=== PATIENT | female | born 1995 | race Hispanic/Latino ===

== ENCOUNTER 2023-02-28 19:58 | Emergency (ER) | payer OTHER ==
[2023-02-28 21:13] LABS: Absolute Lymphocytes (CBC) 2.4 K/uL (0.7-4.9); Hematocrit 39.5 % (36.0-45.0); Lymphocytes % 21.4 % (15.3-44.8); MCV 90.4 fL (80-100); MPV 8.7 fL (7.6-11.3); RBC Red Blood Cell Count 4.37 M/uL (3.86-4.86)
[2023-02-28 21:16] LABS: Specific Gravity 1.007 (1.005-1.030); Urine Bacteria <20 /HPF (<20); Urine Bilirubin NEGATIVE (Negative); Urine Blood 3+ (OVER) (Negative); Urine Clarity Turbid (Clear); Urine Color Colorless (Yellow); Urine Glucose NEGATIVE (Negative); Urine Protein TRACE (Negative); Urine RBC >50 /HPF (None Seen); Urine Urobilinogen Normal (Normal)
[2023-02-28 21:34] LABS: Albumin 4.1 g/dL (3.4-5.0); Bilirubin Total 0.2 mg/dL (0.2-1.0); Potassium 3.6 mEq/L (3.5-5.1); Protein, Total 8.1 g/dL (6.4-8.2)
--- NOTE | 2023-02-28 21:56 | RAD REPORT ---
EXAM DESCRIPTION: US - Transvaginal OB - 02/28/2023 9:45 pm CLINICAL HISTORY: Abd pain;Abd cramping, COMPARISON: <Comparisons> FINDINGS: The uterus is normal in size. The endometrium appears thickened. There is no evidence of I UP. Both ovaries are normal in size with normal blood flow. No pelvic ascites. IMPRESSION: Thickened endometrial stripe is seen without visualized IUP. In the setting of an elevat ed HCG level, this would indicate of unknown location. Follow-up serial HCG levels and pelv ic ultrasound in 7-10 days.
--- NOTE | 2023-02-28 22:40 | ER ---
Nurse's Notes [facility] Name: Aimee Gonzales Age: 27 yrs Sex: Female : 1995 Arrival Date: 02/28/2023 Time: 19:58 Bed 5 Private MD: Diagnosis: Threatened Presentation: 02/28 22:16 Chief complaint: Patient states: 6 weeks , started bleeding today this morning, rv denies abdominal pain. 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 PMX: denies any. Coronavirus screen: Vaccine status: Patient reports having had a previously documented Covid positive illness. 2020 At this time, the client does not indicate any symptoms associated with coronavirus-19. Ebola Screen: No symptoms or risks identified at this time. Initial Sepsis Screen: Does the patient meet any 2 criteria? No. Patient's initial sepsis screen is negative. Does the patient have a suspected source of infection? No. Patient's initial sepsis screen is negative. Risk Assessment: Do you want to hurt yourself or someone else? Patient reports no desire to harm self or others. Onset of symptoms was February 28, 2023. 22:16 Method Of Arrival: Ambulatory rv 22:16 Acuity: DARA 3 rv Triage Assessment: 22:19 General: Appears in no apparent distress. Behavior is calm, cooperative. Pain: Denies rv pain. : No deficits noted. No signs and/or symptoms were reported regarding the genitourinary system. Historical: - Allergies: 22:19 No Known Allergies; rv - PMHx: 22:19 None; rv - Immunization history:: Adult Immunizations up to date. - Social history:: Smoking status: Patient denies any tobacco usage or history of. Screenin:40 [facility] ED Fall Risk Assessment (Adult) History of falling in the last 3 months, vc1 including since admission No falls in past 3 months (0 pts) Confusion or Disorientation No (0 pts) Intoxicated or Sedated Impaired Gait No (0 pts) Mobility Assist Device Used No (0 pt) Altered Elimination No (0 pt) Score/Fall Risk Level 0 - 2 = Low Risk Oriented to surroundings, Maintained a safe environment, Educated pt \T\ family on fall prevention, incl call for assistance when getting out of bed. Abuse screen: Denies threats or abuse. Nutritional screening: No deficits noted. Tuberculosis screening: No symptoms or risk factors identified. Assessment: 22:41 Obstetrical Assessment: General assessment: awake and alert, skin warm and dry. vc1 Vital Signs: 22:16 BP 135 / 80; Pulse 111; Resp 16; Temp 98.1(TE); Pulse Ox 100% ; Weight 72.57 kg; Height rv 5 ft. 1 in. ; Pain 0/10; 22:30 BP 110 / 98; Pulse 105; Resp 16; Pulse Ox 100% on R/A; vc1 22:16 Body Mass Index 30.23 (72.57 kg, 154.94 cm) rv 22:16 Pain Scale: Adult rv Vitals: 22:40 Heart Tones only 6 weeks. vc1 ED Course: 20:00 Patient arrived in ED. mr 20:34 Dinesh Hitchcock MD is Attending Physician. bs3 21:06 Comprehensive Metabolic Panel Sent. bc6 21:06 CBC with Diff Sent. bc6 21:06 Type And Screen Sent. bc6 21:06 Urinalysis w/ reflexes Sent. bc6 21:06 HCG-Quantitative Sent. bc6 21:06 Initial lab(s) drawn, by ri, sent to lab. Inserted saline lock: 22 gauge in left bc6 antecubital area, using aseptic technique. 21:47 US Transvaginal Ob In Process Unspecified. EDMS 22:00 Arm band placed on right wrist. vc1 22:19 Triage completed. rv 22:39 Debbie Hammond, RN is Primary Nurse. vc1 22:41 Patient has correct armband on for positive identification. Bed in low position. Call vc1 light in reach. Pulse ox on. NIBP on. 23:00 No provider procedures requiring assistance completed. IV discontinued, intact, vc1 bleeding controlled, No redness/swelling at site. Pressure dressing applied. Administered Medications: No medications were administered Medication: 22:41 VIS not applicable for this client. vc1 Point of Care Testing: Urine : 22:40 done by lab now vc1 Outcome: 22:40 Discharge ordered by . bs3 23:00 Discharged to home ambulatory, with significant other. vc1 23:00 Condition: good 23:00 Discharge instructions given to patient, Instructed on discharge instructions, follow up and referral plans. gave names for different high risk and insurance consultant for Demonstrated understanding of instructions, follow-up care. 23:02 Patient left the ED. vc1 Signatures: Dispatcher [employer] ELSA Audra Davis mr Zen Blood RN RN rv Debbie Hammond RN RN vc1 Dinesh Hitchcock MD MD bs3 Lucy Harrington 6
--- NOTE | 2023-02-28 22:40 | EDPHYS ---
Physician Documentation [facility] Name: Aimee Gonzales Age: 27 yrs Sex: Female : 1995 Arrival Date: 02/28/2023 Time: 19:58 Bed 5 Private MD: ED Physician Dinesh Hitchcock HPI: 02/28 22:35 This 27 yrs old Female presents to ER via Ambulatory with complaints of bs3 Vaginal Bleeding, + Preg <12wks. 22:35 LMP January 09 presents with small cramping and light bleeidng, no fever or chills, bs3 no other complaints, happened previously. never seen a specialist. Pain is minimal. . Historical: - Allergies: 22:19 No Known Allergies; rv - PMHx: 22:19 None; rv - Immunization history:: Adult Immunizations up to date. - Social history:: Smoking status: Patient denies any tobacco usage or history of. ROS: 22:35 Constitutional: Negative for fever, chills bs3 22:35 All other systems are negative. Exam: 22:35 Constitutional: This is a well developed, well nourished patient who is awake, alert, bs3 and in no acute distress. Head/Face: Normocephalic, atraumatic. Eyes: Pupils equal round and reactive to light, extra-ocular motions intact. Lids and lashes normal. Chest/axilla: Normal chest wall appearance and motion. Nontender with no deformity. No lesions are appreciated. Cardiovascular: Regular rate and rhythm with a normal S1 and S2. symmetric pulses in upper extremities Skin: Warm, dry with normal turgor. Normal color with no rashes, no lesions, and no evidence of cellulitis. MS/ Extremity: Pulses equal, no cyanosis. Neurovascular intact. Full, normal range of motion. Neuro: Awake and alert, GCS 15, oriented to person, place, time, and situation. Cranial nerves II-XII grossly intact. Motor strength 5/5 in all extremities. Sensory grossly intact. Psych: Awake, alert, with orientation to person, place and time. Behavior, mood, and affect are within normal limits. Vital Signs: 22:16 BP 135 / 80; Pulse 111; Resp 16; Temp 98.1(TE); Pulse Ox 100% ; Weight 72.57 kg; Height rv 5 ft. 1 in. ; Pain 0/10; 22:30 BP 110 / 98; Pulse 105; Resp 16; Pulse Ox 100% on R/A; vc1 22:16 Body Mass Index 30.23 (72.57 kg, 154.94 cm) rv 22:16 Pain Scale: Adult rv MDM: 20:33 Patient medically screened. bs3 22:35 Data reviewed: vital signs, nurses notes. ED course: pt with abdominal vag bleeding in bs3 1st trimester, possible iup vs ectopic vs miscarriage, no iup, beta 300, advised repeat in 48-72 hours for hcg repeat, advised f/u with reproductive endocrinology. 02/28 20:35 Order name: HCG-Quantitative; Complete Time: 22:18 bs3 02/28 20:35 Order name: Urinalysis w/ reflexes; Complete Time: 21:23 bs3 02/28 20:35 Order name: Type And Screen; Complete Time: 22:18 bs3 02/28 20:35 Order name: CBC with Diff; Complete Time: 21:23 bs3 02/28 20:35 Order name: Comprehensive Metabolic Panel; Complete Time: 22:18 bs3 02/28 20:35 Order name: US Transvaginal Ob; Complete Time: 22:18 bs3 Administered Medications: No medications were administered Point of Care Testing: Urine : 22:40 done by lab now vc1 Disposition Summary: 02/28/23 22:40 Discharge Ordered Location: Home bs3 Problem: new bs3 Symptoms: have improved bs3 Condition: Stable bs3 Diagnosis - Threatened bs3 Followup: bs3 - With: Emergency Department - When: 48 Hours - Reason: Re-evaluation by your physician Discharge Instructions: - Discharge Summary Sheet bs3 - Vaginal Bleeding During , First Trimester bs3 Forms: - Medication Reconciliation Form bs3 - Thank You Letter bs3 Signatures: Dispatcher [employer] Zen San RN RN Dinesh Coronel MD MD bs3
[2023-02-28 23:34] VITALS: TEMP 98.1; O2SAT 100
[2023-02-28 23:36] VITALS: BP 110/98
== END 2023-02-28 23:02 | disposition home or self-care (01) ==
LOC: ER 19:58
DX: O20.0 Threatened abortion (principal); Z3A.00 Weeks of gestation of pregnancy not specified
CPT/HCPCS: 36415; 76817; 80053; 81001; 84702; 85025; 86850; 86900; 86901